=== PATIENT | male | born 1980 ===

== ENCOUNTER 2016-08-02 13:07 | Emergency (ER) | payer SELFPAY ==
[~2016-08-02] VITALS: Ht 175.3 cm; Wt 65.9 kg
[2016-08-02] MEDS ORDERED: ONDANSETRON (ODT) 4 MG TAB ODT STA (13:12)
[2016-08-02] MEDS ORDERED: HYDROCODONE/APAP (10/325) TAB PO ONE (13:30)
[2016-08-02 13:33] VITALS: TEMP 97.8
[2016-08-02] MEDS ORDERED: HYDROmorphONE 2 MG/ML SYG IM STA (13:38)
[2016-08-02 13:48] VITALS: Ht 175.3 cm; Wt 65.9 kg
--- NOTE | 2016-08-02 13:50 | RADRPT ---
PROCEDURE: XR Left Forearm. CLINICAL INDICATION: Trauma. Left forearm pain. TECHNIQUE: AP and lateral views of the left forearm were obtained. COMPARISON: No prior studies are available for comparison. FINDINGS: There are acute comminuted fractures through the mid shafts of the radius and ulna with angulation a pex posterior. Bone detail is obscured by the overlying air splint. There is no other fracture or dislocation. There is soft tissue swelling overlying the fractures. Articular surfaces are intact. There is no lytic or blastic lesion. IMPRESSION: 1. Acute fractures through the mid shaft of the radius and ulna with angulation apex posterior. RPTAT: QQ .Geraldo Billings MD, MD Date Time Electronically viewed and signed by .Geraldo Billings MD, MD on 08/02/2016 13:50 .R/
[2016-08-02] MEDS ORDERED: HYDR-902 PO (14:48)
[2016-08-02 15:33] VITALS: BP 115/82; PULSE 58; RESP 22
--- NOTE | 2016-08-02 15:41 | ERD ---
ER Documentation Chief Complaint Date/Time DATE: 08/02/16 TIME: 15:37 Chief Complaint Left arm pain HPI Patient is a 36-year-old male with no medical problems who presents with left arm pain after a soccer injury. It happened 30 minutes prior. He has a deformity to his left arm and feels like it is most likely broken. The patient was brought in by ambulance. He was given 8 mg of morphine by paramedics. He is right-handed. He does not currently have a primary doctor. He has no other injuries. ROS All systems reviewed and are negative except as per history of present illness. Medications Home Meds Active Scripts Hydrocodone/Acetaminophen ([place] 10-325 Tablet) 1 Each Tablet, 1 TAB PO Q6H Y for PAIN, #16 TAB Prov:ADRIAN PLASENCIA MD 08/02/16 Allergies Allergies: Coded Allergies: No Known Allergy (Unverified , 08/02/16) PMhx/Soc Medical and Surgical Hx: pt denies Medical Hx Hx Alcohol Use: No Hx Substance Use: No Hx Tobacco Use: No FmHx Family History: No diabetes Physical Exam Vitals Vital Signs Date Time Temp Pulse Resp B/P Pulse Ox O2 Delivery O2 Flow Rate FiO2 08/02/16 15:33 58 22 115/82 100 Room Air 08/02/16 13:48 65 24 142/88 100 08/02/16 13:33 97.8 49 24 142/88 99 Room Air Physical Exam Const: Mild distress secondary to pain Head: Atraumatic Eyes: Normal Conjunctiva ENT: Normal External Ears, Nose and Mouth. Neck: Full range of motion..~ No meningismus. Resp: Clear to auscultation bilaterally Cardio: Regular rate and rhythm, no murmurs Abd: Soft, non tender, non distended. Normal bowel sounds Skin: No petechiae or rashes, no lacerations Back: No midline or flank tenderness Ext: Swelling to the mid left forearm with mild angulation, tenderness to palpation Neur: Awake and alert, 3 nerve roots of the left upper extremity are intact, pulses are normal, cap refill is less than 2 seconds Psych: Normal Mood and Affect Results 24 hrs Current Medications Medications (Trade) Dose Ordered Sig/Chevy Route PRN Reason Start Time Stop Time Status Last Admin Dose Admin Acetaminophen/ Hydrocodone Bitart ([place] (10/325)) 1 tab ONCE ONCE PO 08/02/16 13:30 3/12/17 13:31 DC 08/02/16 13:30 Ondansetron HCl (Zofran Odt) 4 mg ONCE STAT ODT 08/02/16 13:12 08/02/16 13:14 DC 08/02/16 13:30 Hydromorphone HCl (Dilaudid) 2 mg ONCE STAT IM 08/02/16 13:38 08/02/16 13:40 DC 08/02/16 13:42 Procedures/MDM X-ray Forearm 2V Interpreted by me: Bones: Both bones midshaft radius and ulna fractures with comminution and angulation of approximately 10 Joints: No dislocation Foreign body: None Splint Note Type: Sugar tong Location: Left forearm Indication: Radius and ulna fracture Splint Assessment: Neurovascularly intact post splint placement with good fit. Patient is a 36-year-old male with no medical problems who presents with a left forearm fracture. The patient had [place] and Zofran in the emergency department. X-ray shows a both bones midshaft radius and ulna fracture of the left forearm. He is neurovascularly intact. I spoke with Dr. Jose from orthopedic surgery who recommended splinting without reduction and said that he could see the patient in the office. The patient will likely need orthopedic fixation within the next few days. The patient was given [place] for pain. He can return for any worsening symptoms. Departure Diagnosis: Primary Impression: Forearm fractures, both bones, closed Encounter type: initial encounter Laterality: left Qualified Code: S52.202A - Forearm fractures, both bones, closed, left, initial encounter Condition: Fair Patient Instructions: Radius And Ulna Fx, No Reduction Required Referrals: CIERA JOSE MD Additional Instructions: SPECIALIST: YOU HAVE A MEDICAL CONDITION WHICH REQUIRES YOU TO SEE A SPECIALIST WITHIN THE NEXT 1-2 DAYS. PLEASE FOLLOW UP WITH YOUR PRIMARY PHYSICIAN FOR REFFERAL.IF YOU DO NOT HAVE A PRIMARY CARE PHYSICIAN AND/OR YOU CAN NOT AFFORD TO SEE A PHYSICIAN THE FOLLOWING RESOURCES HAVE BEEN SUPPLIED TO YOU. IT IS YOUR RESPONSIBILITY TO BE SEEN BY THE SPECIALIST ADRIAN PLASENCIA MD Aug 02, 2016 15:41
== END 2016-08-02 15:34 | disposition home or self-care (01) ==
LOC: E/R 13:07
DX: S52.202A Unspecified fracture of shaft of left ulna, initial encounter for closed fracture (principal); X58.XXXA Exposure to other specified factors, initial encounter; Y92.9 Unspecified place or not applicable
CPT/HCPCS: 29105; 73090; 96372; 99284; J1170